=== PATIENT | female | born 1990 | race Caucasian/White ===

== ENCOUNTER 2016-04-06 18:08 | Emergency (ER) | payer OTHER ==
[~2016-04-06] VITALS: Ht 154.9 cm; Wt 77.2 kg
[2016-04-06] MEDS ORDERED: MENT5.8L MM (18:13)
[2016-04-06] MEDS ORDERED: ACET-2247 PO (18:13)
[2016-04-06 19:50] VITALS: BP 124/71
== END 2016-04-06 20:52 | disposition home or self-care (01) ==
LOC: EMS 18:09
DX: J02.9 Acute pharyngitis, unspecified (principal); Z87.891 Personal history of nicotine dependence
CPT/HCPCS: 99283